=== PATIENT | male | born 1980 | race Caucasian/White ===

== ENCOUNTER 2017-06-08 01:13 | Emergency (ER) | payer OTHER ==
[2017-06-08 01:23] VITALS: BP 164/95
[2017-06-08] MEDS ORDERED: LORazepam 2 MG/ML Syringe IM ONE (01:34)
--- NOTE | 2017-06-08 01:38 | EDM.PDOCBH ---
ED HPI GENERAL MEDICAL PROBLEM - General Chief Complaint: Behavioral/Psych Stated Complaint: ANXIETY Time Seen by Provider: 06/08/17 01:35 Source of Information: Reports: Patient History Limitations: Reports: No Limitations - History of Present Illness INITIAL COMMENTS - FREE TEXT/NARRATIVE: h/o insomnia. took his usual Rx but still feel wound up. - Related Data Allergies Allergy/AdvReac Type Severity Reaction Status Date / Time No Known Allergies Allergy Verified 06/15/15 19:04 Home Meds: Home Meds ClonazePAM [KlonoPIN] 1 mg PO ASDIRECTED PRN 06/15/15 [History] Hydrochlorothiazide [Hydrochlorothiazide] 25 mg PO DAILY 06/15/15 [History] Lisinopril [Lisinopril] 40 mg PO DAILY 06/15/15 [History] Pantoprazole [ProTONIX] 40 mg PO DAILY 06/15/15 [History] Metoprolol Succinate 50 mg PO DAILY 06/08/17 [History] metFORMIN HCl [Metformin HCl] 1 tab PO BID 06/08/17 [History] Past Medical History HEENT History: Reports: Impaired Vision Cardiovascular History: Reports: Hypertension Respiratory History: Reports: None Gastrointestinal History: Reports: GERD Genitourinary History: Reports: None Musculoskeletal History: Reports: Back Pain, Chronic Neurological History: Reports: None Psychiatric History: Reports: Anxiety Endocrine/Metabolic History: Reports: Diabetes, Type II Hematologic History: Reports: None Immunologic History: Reports: None Oncologic (Cancer) History: Reports: None Dermatologic History: Reports: None Social & Family History - Tobacco Use Smoking Status *Q: Never Smoker - Recreational Drug Use Recreational Drug Use: No ED ROS GENERAL - Review of Systems Review Of Systems: ROS reveals no pertinent complaints other than HPI. ED EXAM, BEHAVIORAL HEALTH - Physical Exam Exam: See Below Exam Limited By: No Limitations General Appearance: Alert, WD/WN, No Apparent Distress, Anxious, Other (little dsitraught) Eye Exam: Bilateral Eye: PERRL (pupils ER @ 4mm) Ears: Hearing Grossly Normal Throat/Mouth: Normal Voice, No Airway Compromise Head: Atraumatic Neck: Non-Tender, Full Range of Motion Respiratory/Chest: No Respiratory Distress Cardiovascular: Regular Rate, Rhythm GI/Abdominal: Soft, Non-Tender Neurological: Alert, Normal Mood/Affect, Normal Cognition, Normal Gait, No Motor /Sensory Deficits, Oriented x 3 Psychiatric: Flat Affect Skin Exam: Warm, Dry, Normal color COURSE, BEHAVIORAL HEALTH COMP - Course Vital Signs: Last Vital Signs Temp 36.1 C 06/08/17 01:16 Pulse 86 06/08/17 01:23 Resp 18 06/08/17 01:23 BP 164/95 H 06/08/17 01:23 Pulse Ox 100 06/08/17 01:23 Orders, Labs, Meds: Medications Discontinued Medications Generic Name Dose Route Start Last Admin Trade Name Tatiana PRN Reason Stop Dose Admin Lorazepam 2 mg 06/08/17 01:34 06/08/17 01:38 Ativan IM 06/08/17 01:35 2 mg ONETIME ONE Administration Departure - Departure Time of Disposition: 01:40 Disposition: Home, Self-Care 01 Condition: Good Clinical Impression: Insomnia Qualifiers: Insomnia type: unspecified Qualified Code(s): G47.00 - Insomnia, unspecified - Discharge Information Forms: ED Department Discharge Additional Instructions: 1) recheck as needed
== END 2017-06-08 01:43 | disposition home or self-care (01) ==
LOC: DL.ED 01:13
DX: G47.00 Insomnia, unspecified (principal); I10 Essential (primary) hypertension; K21.9 Gastro-esophageal reflux disease without esophagitis; E11.9 Type 2 diabetes mellitus without complications; Z79.899 Other long term (current) drug therapy
CPT/HCPCS: 96372; 99283; J2060

== ENCOUNTER 2017-07-21 23:49 | Emergency (ER) | payer OTHER ==
[2017-07-21] MEDS ORDERED: Sodium Chloride 0.9% 1,000 ML IV ONE (23:55)
[2017-07-22 00:02] VITALS: BP 157/93
--- NOTE | 2017-07-22 00:03 | EDM.PDOC ---
ED HPI GENERAL MEDICAL PROBLEM - General Chief Complaint: Headache Stated Complaint: NOT FEELING GOOD [id number] Time Seen by Provider: 07/21/17 23:54 Source of Information: Reports: Patient History Limitations: Reports: No Limitations - History of Present Illness INITIAL COMMENTS - FREE TEXT/NARRATIVE: 37 yo white male c/o headache going from back of neck over top of head and anxiety w/ muscle cramps since yesterday after work and has been hunting all day today. Denies SOB and Chest Pain. Pt. admits to taking Tylenol and Advil prior to coming to ER Onset Date: 07/20/17 Onset Time: 12:00 Duration: Day(s): Location: Reports: Head, Neck Quality: Reports: Ache Severity: Moderate Improves with: Reports: None Worsens with: Reports: None Associated Symptoms: Reports: Headaches - Related Data Allergies Allergy/AdvReac Type Severity Reaction Status Date / Time No Known Allergies Allergy Verified 07/22/17 00:02 Home Meds: Home Meds ClonazePAM [KlonoPIN] 1 mg PO ASDIRECTED PRN 06/15/15 [History] Hydrochlorothiazide [Hydrochlorothiazide] 25 mg PO DAILY 06/15/15 [History] Lisinopril [Lisinopril] 40 mg PO DAILY 06/15/15 [History] Pantoprazole [ProTONIX] 40 mg PO DAILY 06/15/15 [History] Metoprolol Succinate 50 mg PO DAILY 06/08/17 [History] metFORMIN HCl [Metformin HCl] 1 tab PO BID 06/08/17 [History] Past Medical History HEENT History: Reports: Impaired Vision Cardiovascular History: Reports: Hypertension Respiratory History: Reports: None Gastrointestinal History: Reports: GERD Genitourinary History: Reports: None Musculoskeletal History: Reports: Back Pain, Chronic Neurological History: Reports: None Psychiatric History: Reports: Anxiety Endocrine/Metabolic History: Reports: Diabetes, Type II Hematologic History: Reports: None Immunologic History: Reports: None Oncologic (Cancer) History: Reports: None Dermatologic History: Reports: None Social & Family History - Tobacco Use Smoking Status *Q: Never Smoker - Recreational Drug Use Recreational Drug Use: No ED ROS GENERAL - Review of Systems Review Of Systems: See Below Constitutional: Reports: No Symptoms HEENT: Reports: No Symptoms Respiratory: Reports: No Symptoms Cardiovascular: Reports: No Symptoms Endocrine: Reports: No Symptoms GI/Abdominal: Reports: No Symptoms : Reports: No Symptoms Musculoskeletal: Reports: No Symptoms Skin: Reports: No Symptoms Neurological: Reports: Headache Psychiatric: Reports: No Symptoms Hematologic/Lymphatic: Reports: No Symptoms Immunologic: Reports: No Symptoms - Physical Exam Exam: See Below Exam Limited By: No Limitations General Appearance: Alert, No Apparent Distress, Obese Eye Exam: Bilateral Eye: EOMI, PERRL Ears: Normal External Exam Nose: Normal Inspection Throat/Mouth: Normal Inspection, Normal Lips Head Exam: Atraumatic, Normocephalic Neck: Normal Inspection, Supple Respiratory/Chest: No Respiratory Distress, Lungs Clear Cardiovascular: Normal Peripheral Pulses, Regular Rate, Rhythm GI/Abdominal: Normal Bowel Sounds, Soft, Non-Tender Neuro Exam (Abbreviated): Alert, Oriented, CN II-XII Intact, Normal Cognition Back Exam: Normal Inspection Extremities: Normal Inspection, Normal Range of Motion Psychiatric: Normal Affect Skin Exam: Warm, Dry, Intact, Normal Color Course - Vital Signs Last Recorded V/S: Last Vital Signs Temp 36.1 C 07/21/17 23:54 Pulse 98 07/21/17 23:54 Resp 20 07/21/17 23:54 BP 157/93 H 07/21/17 23:54 Pulse Ox 99 07/21/17 23:54 - Orders/Labs/Meds Orders: Active Orders 24 hr Category Date Time Status Chest 2V [CR] Urgent Exams 07/22/17 00:30 Taken UA W/MICROSCOPIC [URIN] Stat Lab 07/22/17 01:05 Results Labs: Laboratory Tests 07/22/17 07/22/17 07/22/17 Range/Units 00:05 00:05 00:40 WBC 15.4 H (5.0-10.0) 10^3/uL RBC 4.85 (4.6-6.2) 10^6/uL Hgb 14.3 (14.0-18.0) g/dL Hct 43.3 (40.0-54.0) % MCV 89.3 (80-100) fL MCH 29.5 (27.0-34.0) pg MCHC 33.0 (33.0-35.0) g/dL Plt Count 330 (150-450) 10^3/uL Neut % (Auto) 53.7 (42.2-75.2) % Lymph % (Auto) 36.7 (20.5-50.1) % Johnson % (Auto) 7.0 (2-8) % Eos % (Auto) 2.3 (1.0-3.0) % Baso % (Auto) 0.3 (0.0-1.0) % Sodium 136 (135-145) mmol/L Potassium 3.5 L (3.6-5.0) mmol/L Chloride 97 L (101-111) mmol/L Carbon Dioxide 27.0 (21.0-31.0) mmol/L Anion Gap 15.5 BUN 26 H (7-18) mg/dL Creatinine 1.2 (0.6-1.3) mg/dL Est Cr Clr Drug Dosing 104.16 mL/min Estimated GFR (MDRD) > 60 BUN/Creatinine Ratio 21.66 Glucose 124 H (74-105) mg/dL Lactic Acid 1.6 (0.5-2.2) mmol/L Calcium 9.7 (8.4-10.2) mg/dl Magnesium 1.8 (1.8-2.5) mg/dL Total Bilirubin 1.3 H (0.2-1.0) mg/dL AST 23 (10-42) IU/L ALT 33 (10-60) IU/L Alkaline Phosphatase 51 (42-121) IU/L Total Protein 8.1 (6.7-8.2) g/dl Albumin 4.6 (3.2-5.5) g/dl Globulin 3.5 Albumin/Globulin Ratio 1.31 Urine Color (YELLOW) Urine Appearance (CLEAR) Urine pH (5.0-9.0) Ur Specific [place] (1.005-1.030) Urine Protein (NEGATIVE) Urine Glucose (UA) (NEGATIVE) Urine Ketones (NEGATIVE) Urine Occult Blood (NEGATIVE) Urine Nitrite (NEGATIVE) Urine Bilirubin (NEGATIVE) Urine Urobilinogen (0.2-1.0) mg/dL Ur Leukocyte Esterase (NEGATIVE) Urine Opiates Screen (NEGATIVE) Ur Oxycodone Screen (NEGATIVE) Urine Methadone Screen (NEGATIVE) Ur Barbiturates Screen (NEGATIVE) U Tricyclic Antidepress (NEGATIVE) Ur Phencyclidine Scrn (NEGATIVE) Ur Amphetamine Screen (NEGATIVE) U Methamphetamines Scrn (NEGATIVE) Urine MDMA Screen (NEGATIVE) U Benzodiazepines Scrn (NEGATIVE) Urine Cocaine Screen (NEGATIVE) U Marijuana (THC) Screen (NEGATIVE) 07/22/17 07/22/17 Range/Units 01:05 [employer] 01:05 [place] [employer] WBC (5.0-10.0) 10^3/uL RBC (4.6-6.2) 10^6/uL Hgb (14.0-18.0) g/dL Hct (40.0-54.0) % MCV (80-100) fL MCH (27.0-34.0) pg MCHC (33.0-35.0) g/dL Plt Count (150-450) 10^3/uL Neut % (Auto) (42.2-75.2) % Lymph % (Auto) (20.5-50.1) % Johnson % (Auto) (2-8) % Eos % (Auto) (1.0-3.0) % Baso % (Auto) (0.0-1.0) % Sodium (135-145) mmol/L Potassium (3.6-5.0) mmol/L Chloride (101-111) mmol/L Carbon Dioxide (21.0-31.0) mmol/L Anion Gap BUN (7-18) mg/dL Creatinine (0.6-1.3) mg/dL Est Cr Clr Drug Dosing mL/min Estimated GFR (MDRD) BUN/Creatinine Ratio Glucose (74-105) mg/dL Lactic Acid (0.5-2.2) mmol/L Calcium (8.4-10.2) mg/dl Magnesium (1.8-2.5) mg/dL Total Bilirubin (0.2-1.0) mg/dL AST (10-42) IU/L ALT (10-60) IU/L Alkaline Phosphatase (42-121) IU/L Total Protein (6.7-8.2) g/dl Albumin (3.2-5.5) g/dl Globulin Albumin/Globulin Ratio Urine Color Yellow (YELLOW) Urine Appearance Clear (CLEAR) Urine pH 5.5 (5.0-9.0) Ur Specific [place] 1.025 (1.005-1.030) Urine Protein Negative (NEGATIVE) Urine Glucose (UA) Negative (NEGATIVE) Urine Ketones Negative (NEGATIVE) Urine Occult Blood Negative (NEGATIVE) Urine Nitrite Negative (NEGATIVE) Urine Bilirubin Negative (NEGATIVE) Urine Urobilinogen 0.2 (0.2-1.0) mg/dL Ur Leukocyte Esterase Negative (NEGATIVE) Urine Opiates Screen Negative (NEGATIVE) Ur Oxycodone Screen Negative (NEGATIVE) Urine Methadone Screen Negative (NEGATIVE) Ur Barbiturates Screen Negative (NEGATIVE) U Tricyclic Antidepress Negative (NEGATIVE) Ur Phencyclidine Scrn Negative (NEGATIVE) Ur Amphetamine Screen Negative (NEGATIVE) U Methamphetamines Scrn Negative (NEGATIVE) Urine MDMA Screen Negative (NEGATIVE) U Benzodiazepines Scrn Negative (NEGATIVE) Urine Cocaine Screen Negative (NEGATIVE) U Marijuana (THC) Screen Negative (NEGATIVE) Meds: Medications Discontinued Medications Generic Name Dose Route Start Last Admin Trade Name Freq PRN Reason Stop Dose Admin Sodium Chloride 1,000 mls @ 999 mls/hr 07/21/17 23:55 07/22/17 00:11 Normal Saline IV 07/22/17 00:55 999 mls/hr .BOLUS ONE Administration Potassium Chloride 20 meq 07/22/17 00:38 07/22/17 00:43 Klor-Con 10 PO 07/22/17 00:39 20 meq ONETIME ONE Administration Departure - Departure Time of Disposition: 01:25 Disposition: Home, Self-Care 01 Condition: Good Clinical Impression: Hypokalemia Head ache Qualifiers: Headache type: tension-type Headache chronicity pattern: acute headache Intractability: not intractable Qualified Code(s): G44.209 - Tension-type headache, unspecified, not intractable Leukocytosis, unspecified Qualifiers: Leukocytosis type: unspecified Qualified Code(s): D72.829 - Elevated white blood cell count, unspecified - Discharge Information Forms: ED Department Discharge Additional Instructions: Rest Increase intake of Fluids ( Water / Juice) F/U w/ PCP on Sunday - My Orders Last 24 Hours: My Active Orders 07/22/17 00:30 Chest 2V [CR] Urgent 07/22/17 01:05 UA W/MICROSCOPIC [URIN] Stat - Assessment/Plan Last 24 Hours: My Active Orders 07/22/17 00:30 Chest 2V [CR] Urgent 07/22/17 01:05 UA W/MICROSCOPIC [URIN] Stat
[2017-07-22 00:28] LABS: CHLORIDE,CL 97 mmol/L (101-111); SODIUM,NA 136 mmol/L (135-145)
[2017-07-22] MEDS ORDERED: Potassium Chloride 10 MEQ Tab.ER PO ONE (00:38)
== END 2017-07-22 01:48 | disposition home or self-care (01) ==
LOC: DL.ED 23:49
DX: G44.209 Tension-type headache, unspecified, not intractable (principal); D72.829 Elevated white blood cell count, unspecified; E87.6 Hypokalemia; I10 Essential (primary) hypertension; K21.9 Gastro-esophageal reflux disease without esophagitis; E11.9 Type 2 diabetes mellitus without complications; Z79.899 Other long term (current) drug therapy; Z79.84 Long term (current) use of oral hypoglycemic drugs
CPT/HCPCS: 36415; 71020; 80053; 80305; 81001; 83605; 83735; 85025; 96360; 99284; A9270; J7030

== ENCOUNTER 2019-10-13 05:22 | Emergency (ER) | payer OTHER ==
--- NOTE | 2019-10-13 05:41 | EDM.PDOCBH ---
ED HPI GENERAL MEDICAL PROBLEM - General Chief Complaint: Behavioral/Psych Stated Complaint: ANXIETY Time Seen by Provider: 10/13/19 05:41 Source of Information: Reports: Patient, RN, RN Notes Reviewed History Limitations: Reports: No Limitations - History of Present Illness INITIAL COMMENTS - FREE TEXT/NARRATIVE: patient presents to ER with complaint of anxiety. Patient states he has had trouble going to sleep, and is very shaky and jittery, cannot shot himself down. Patient states he does have some nasal congestion, stuffiness in the nose and unable to breathe through the nose. Patient states he thinks was a pre- existing anxiety. Patient states he ran out of his clonazepam. He states generally that helps him with the anxiety. Patient denies any other problems, fever, chills, shortness of breath, nausea/vomiting/diarrhea. Patient states he thinks he was having some musculoskeletal chest pain as it was painful when moving his arms. This has since resolved. Onset: Today, Sudden - Related Data Allergies Allergy/AdvReac Type Severity Reaction Status Date / Time No Known Allergies Allergy Verified 10/13/19 05:37 Home Meds: Home Meds ClonazePAM [KlonoPIN] 1 mg PO ASDIRECTED PRN 06/15/15 [History] Hydrochlorothiazide 25 mg PO DAILY 06/15/15 [History] Lisinopril 40 mg PO DAILY 06/15/15 [History] Pantoprazole [ProTONIX] 40 mg PO DAILY 06/15/15 [History] metFORMIN HCl [Metformin HCl] 1 tab PO BID 06/08/17 [History] Past Medical History HEENT History: Reports: Impaired Vision Cardiovascular History: Reports: Hypertension Respiratory History: Reports: None Gastrointestinal History: Reports: GERD Genitourinary History: Reports: None Musculoskeletal History: Reports: Back Pain, Chronic Neurological History: Reports: None Psychiatric History: Reports: Anxiety Endocrine/Metabolic History: Reports: Diabetes, Type II Hematologic History: Reports: None Immunologic History: Reports: None Oncologic (Cancer) History: Reports: None Dermatologic History: Reports: None Social & Family History - Caffeine Use Caffeine Use: Reports: Coffee, Soda, Tea ED ROS GENERAL - Review of Systems Review Of Systems: Comprehensive ROS is negative, except as noted in HPI. ED EXAM, BEHAVIORAL HEALTH - Physical Exam Exam: See Below Exam Limited By: No Limitations General Appearance: Alert, WD/WN, No Apparent Distress Eye Exam: Bilateral Eye: EOMI, Normal Inspection Ears: Normal External Exam, Hearing Grossly Normal Nose: Normal Inspection, Other (nasal congestion) Throat/Mouth: Normal Inspection, Normal Voice, No Airway Compromise Head: Atraumatic, Normocephalic Neck: Normal Inspection, Supple, Non-Tender, Full Range of Motion Respiratory/Chest: No Respiratory Distress, Lungs Clear, Normal Breath Sounds, No Accessory Muscle Use, Chest Non-Tender Cardiovascular: Normal Peripheral Pulses, Regular Rate, Rhythm, No Edema, No Gallop, No JVD, No Murmur, No Rub GI/Abdominal: Normal Bowel Sounds, Soft, Non-Tender, No Organomegaly, No Distention, No Abnormal Bruit, No Mass (Male) Exam: Deferred Rectal (Males) Exam: Deferred Back Exam: Normal Inspection, Full Range of Motion, NT Extremities: Normal Inspection, Normal Range of Motion, Non-Tender, Normal Capillary Refill, No Pedal Edema Neurological: Alert, Normal Mood/Affect, CN II-XII Intact, Normal Cognition, Normal Gait, Normal Reflexes, No Motor/Sensory Deficits, Oriented x 3 Psychiatric: Alert, Normal Cognition, Normal Mood, Oriented, Restless, Other ( anxious) Skin Exam: Warm, Dry, Intact, Normal color, No rash COURSE, BEHAVIORAL HEALTH COMP - Course Vital Signs: Last Vital Signs Temp 96.1 F 10/13/19 05:30 Pulse 107 H 10/13/19 05:30 Resp 18 10/13/19 05:30 BP 135/85 10/13/19 06:03 Pulse Ox 100 10/13/19 05:30 Orders, Labs, Meds: Medications Discontinued Medications Generic Name Dose Route Start Last Admin Trade Name Elderq PRN Reason Stop Dose Admin Clonazepam 0.5 mg 10/13/19 05:47 10/13/19 05:56 Klonopin PO 10/13/19 05:48 0.5 mg ONETIME ONE Administration Discharge vs Psych Eval/Treatment:: 10/13/19 06:09 patient states feeling improvement from the oral medication. Departure - Departure Time of Disposition: 06:09 Disposition: Home, Self-Care 01 Condition: Fair Clinical Impression: Anxiety, Nasal sinus congestion - Discharge Information *PRESCRIPTION DRUG MONITORING PROGRAM REVIEWED*: No *COPY OF PRESCRIPTION DRUG MONITORING REPORT IN PATIENT AL: No Instructions: Generalized Anxiety Disorder, Adult, Panic Attack, [id number], Living With Anxiety Forms: ED Department Discharge Additional Instructions: Rx: Clonazepam 0.5 mg Follow-up with your primary care facility if no improvement May use Flonase or [id number] decongestant for sinus congestion Sepsis Event Note - Focused Exam Vital Signs: Vital Signs Temp Pulse Resp BP Pulse Ox 10/13/19 06:03 135/85 10/13/19 05:30 96.1 F 107 H 18 116/85 100 Date Exam was Performed: 10/13/19 Time Exam was Performed: 06:18
[2019-10-13 05:47] VITALS: PULSE 107
[2019-10-13] MEDS ORDERED: ClonazePAM 0.5 MG Tab PO ONE (05:47)
[2019-10-13 06:04] VITALS: BP 135/85
== END 2019-10-13 06:24 | disposition home or self-care (01) ==
LOC: DL.ED 05:22
DX: F41.9 Anxiety disorder, unspecified (principal); R09.81 Nasal congestion; K21.9 Gastro-esophageal reflux disease without esophagitis; I10 Essential (primary) hypertension; E11.9 Type 2 diabetes mellitus without complications; Z79.84 Long term (current) use of oral hypoglycemic drugs; Z79.899 Other long term (current) drug therapy
CPT/HCPCS: 99283; A9270

== ENCOUNTER 2021-06-27 08:43 | Emergency (ER) | payer OTHER ==
--- NOTE | 2021-06-27 08:44 | EDM.PDOC ---
ED HPI GENERAL MEDICAL PROBLEM - General Chief Complaint: Back Pain or Injury Stated Complaint: BACK MARIAM [id number] Time Seen by Provider: 06/27/21 08:44 Source of Information: Reports: Patient, Old Records, RN, RN Notes Reviewed History Limitations: Reports: No Limitations - History of Present Illness INITIAL COMMENTS - FREE TEXT/NARRATIVE: Pt presents to ER by POV with c/o flare up of acute left low back pain and spasm two days ago without any specific injury or causative activity. Pt states the pain radiates through the left buttock in to the left anterior thigh, and t ingles down the left lower leg to the foot/toes. He rates the pain 10/10. Laying on his left side to find a position of comfort alleviates the pain slightly. Movement of the back and hips aggravates the pain. He denies saddle area numbness, loss of bowel or bladder control, or motor weakness. Hx of chronic low back pain with lumbar surgery about 6 years ago. Has taken NSAIDs and Valium 10mg yesterday without relief. Onset: Gradual Onset Date: 06/26/21 Duration: Constant, Getting Worse Location: Reports: Back, Lower Extremity, Left Quality: Reports: Ache, Sharp, Other (Spasm) Severity: Severe Associated Symptoms: Reports: No Other Symptoms Left Back Pain Score (Numeric/FACES): 10 - Related Data Allergies Allergy/AdvReac Type Severity Reaction Status Date / Time No Known Allergies Allergy Verified 06/27/21 08:49 Home Meds: Home Meds ClonazePAM [KlonoPIN] 1 mg PO ASDIRECTED PRN 06/15/15 [History] Hydrochlorothiazide 25 mg PO DAILY 06/15/15 [History] Lisinopril 40 mg PO DAILY 06/15/15 [History] Pantoprazole [ProTONIX] 40 mg PO DAILY 06/15/15 [History] metFORMIN HCl [Metformin HCl] 1 tab PO BID 06/08/17 [History] Past Medical History HEENT History: Reports: Impaired Vision Cardiovascular History: Reports: Hypertension Respiratory History: Reports: None Other Respiratory History: Has a c-pap Gastrointestinal History: Reports: GERD Genitourinary History: Reports: None Musculoskeletal History: Reports: Back Pain, Chronic Neurological History: Reports: None Psychiatric History: Reports: Anxiety Endocrine/Metabolic History: Reports: Diabetes, Type II, Obesity/BMI 30+ Hematologic History: Reports: None Immunologic History: Reports: None Oncologic (Cancer) History: Reports: None Dermatologic History: Reports: None - Infectious Disease History Infectious Disease History: Reports: Chicken Pox - Past Surgical History GI Surgical History: Reports: Hernia, Abdominal Neurological Surgical History: Reports: Lumbar Spine Musculoskeletal Surgical History: Reports: Knee Replacement, Other (See Below) Other Musculoskeletal Surgeries/Procedures:: back surg. Social & Family History - Family History Family Medical History: No Pertinent Family History - Caffeine Use Caffeine Use: Reports: Coffee, Soda, Tea Other Caffeine Use: 1 cup /day - Living Situation & Occupation Living situation: Reports: Occupation: Other ([employer]) ED ROS GENERAL - Review of Systems Review Of Systems: Comprehensive ROS is negative, except as noted in HPI. ED EXAM,LOWER BACK PAIN/INJURY - Physical Exam Exam: See Below Exam Limited By: No Limitations General Appearance: Alert, Moderate Distress (Due to pain), Obese Throat/Mouth: Normal Voice, No Airway Compromise Head: Atraumatic, Normocephalic Neck: Normal Inspection, Non-Tender, Full Range of Motion Respiratory/Chest: No Respiratory Distress Cardiovascular: Normal Peripheral Pulses GI/Abdominal: Normal Bowel Sounds, Soft, Non-Tender, Other (Benign obese abdomen) (Male) Exam: Deferred Rectal (Males) Exam: Deferred Back Exam: Decreased Range of Motion (Due to lumbar pain), Muscle Spasm (Lumbar region). No: CVA Tenderness (L), CVA Tenderness (R), Paraspinal Tenderness, Vertebral Tenderness Extremities: Normal Inspection, Non-Tender, No Pedal Edema, Normal Capillary Refill Neurological: Alert, Normal Mood/Affect, Normal Dorsiflexion, Normal Plantar Flexion, No Motor/Sensory Deficits, Oriented x 3 Psychiatric: Normal Mood Skin Exam: Warm, Dry, Intact, Normal Color, No Rash Course - Vital Signs Last Recorded V/S: Last Vital Signs Temp 96.7 F L 06/27/21 08:52 Pulse 99 06/27/21 08:52 Resp 20 06/27/21 08:52 BP 108/61 06/27/21 08:52 Pulse Ox 99 06/27/21 08:52 - Orders/Labs/Meds Orders: Active Orders 24 hr Category Date Time Status Peripheral IV Care [RC] . DIRECTED Care 06/27/21 08:45 Active UA RFX HIEN AND CULT IF INDIC [URIN] Stat Lab 06/27/21 08:45 Ordered Sodium Chloride 0.9% [Saline Flush] Med 06/27/21 08:44 Active 10 ml FLUSH ASDIRECTED PRN Peripheral IV Insertion Adult [OM.PC] Stat Oth 06/27/21 08:44 Ordered Medication Orders Sodium Chloride (Sodium Chloride 0.9% 10 Ml Syringe) 10 ml FLUSH ASDIRECTED PRN PRN Reason: Keep Vein Open Last Admin: 06/27/21 10:00 Dose: 10 ml Documented by: Admin: 06/27/21 09:06 Dose: 10 ml Documented by: MAT Labs: Laboratory Tests 06/27/21 06/27/21 Range/Units 08:58 08:58 WBC 8.5 (5.0-10.0) 10^3/uL RBC 5.09 (4.6-6.2) 10^6/uL Hgb 14.4 (14.0-18.0) g/dL Hct 43.7 (40.0-54.0) % MCV 85.9 D (80-100) fL MCH 28.3 (27.0-34.0) pg MCHC 33.0 (33.0-35.0) g/dL Plt Count 318 (150-450) 10^3/uL Neut % (Auto) 65.7 (42.2-75.2) % Lymph % (Auto) 24.9 (20.5-50.1) % [place] % (Auto) 7.2 (2-8) % Eos % (Auto) 1.7 (1.0-3.0) % Baso % (Auto) 0.5 (0.0-1.0) % C-Reactive Protein < 0.2 (0.0-0.9) mg/dL Meds: Medications Generic Name Dose Route Start Last Admin Trade Name Freq PRN Reason Stop Dose Admin Sodium Chloride 10 ml 06/27/21 08:44 06/27/21 10:00 Sodium Chloride 0.9% 10 Ml Syringe FLUSH 10 ml ASDIRECTED PRN Administration Keep Vein Open Discontinued Medications Generic Name Dose Route Start Last Admin Trade Name Freq PRN Reason Stop Dose Admin Dexamethasone 12 mg 06/27/21 08:45 06/27/21 09:04 Dexamethasone 4 Mg/Ml Sdv IVPUSH 06/27/21 08:46 12 mg ONETIME ONE Administration Hydromorphone HCl 1 mg 06/27/21 08:46 06/27/21 09:05 Hydromorphone 1 Mg/Ml Syringe IVPUSH 06/27/21 08:47 1 mg ONETIME ONE Administration Hydromorphone HCl 2 mg 06/27/21 09:18 06/27/21 09:55 Hydromorphone 1 Mg/Ml Syringe IVPUSH 06/27/21 09:19 2 mg ONETIME ONE Administration Ondansetron HCl 4 mg 06/27/21 08:46 06/27/21 09:04 Ondansetron 4 Mg/2 Ml Sdv IV 06/27/21 08:47 4 mg ONETIME ONE Administration - Re-Assessments/Exams Free Text/Narrative Re-Assessment/Exam: 06/27/21 10:57 No signs of cauda equina syndrome or cord compromise. I see no indication for imaging at this time, as pt is unable to lay on his back for scan, and is too large for CT or MRI. He may need an MRI in the near future, and has a physician to f/u with for recheck. Departure - Departure Time of Disposition: 10:59 Disposition: Home, Self-Care 01 Condition: Fair Clinical Impression: Acute exacerbation of chronic low back pain, Acute left lumbar radiculopathy, Spasm of muscle of lower back - Discharge Information *PRESCRIPTION DRUG MONITORING PROGRAM REVIEWED*: No *COPY OF PRESCRIPTION DRUG MONITORING REPORT IN PATIENT AL: No Instructions: Lumbosacral Radiculopathy, Acute Back Pain, Adult Forms: ED Department Discharge Additional Instructions: Rx: Oxycodone APAP 10mg/325mg Rx: Decadron 4mg Rx: Cyclobenzaprine 10mg Follow up in clinic in 3 to 4 days for recheck, and consider MRI if not improving as expected. Sepsis Event Note (ED) - Focused Exam Vital Signs: Vital Signs Temp Pulse Resp BP Pulse Ox 06/27/21 08:52 96.7 F L 99 20 108/61 99 - My Orders Last 24 Hours: My Active Orders 06/27/21 08:44 Sodium Chloride 0.9% [Saline Flush] 10 ml FLUSH ASDIRECTED PRN Peripheral IV Insertion Adult [OM.PC] Stat 06/27/21 08:45 Peripheral IV Care [RC] . DIRECTED UA RFX HIEN AND CULT IF INDIC [URIN] Stat - Assessment/Plan Last 24 Hours: My Active Orders 06/27/21 08:44 Sodium Chloride 0.9% [Saline Flush] 10 ml FLUSH ASDIRECTED PRN Peripheral IV Insertion Adult [OM.PC] Stat 06/27/21 08:45 Peripheral IV Care [RC] . DIRECTED UA RFX HIEN AND CULT IF INDIC [URIN] Stat
[2021-06-27] MEDS ORDERED: Dexamethasone 4 MG/ML SDV IVPUSH ONE (08:45)
[2021-06-27] MEDS ORDERED: HYDROmorphone 1 MG/ML Syringe IVPUSH ONE ×2 (08:46→09:18)
[2021-06-27] MEDS ORDERED: Ondansetron 4 MG/2 ML SDV IV ONE (08:46)
[2021-06-27 08:54] VITALS: BP 108/61; PULSE 99
[2021-06-27] MEDS: Sodium Chloride 0.9% 10 ML Syringe FLUSH PRN ×2 (09:06→10:00)
== END 2021-06-27 11:10 | disposition home or self-care (01) ==
LOC: DL.ED 08:43
DX: M54.16 Radiculopathy, lumbar region (principal); M62.830 Muscle spasm of back; I10 Essential (primary) hypertension; K21.9 Gastro-esophageal reflux disease without esophagitis; E11.9 Type 2 diabetes mellitus without complications; E66.9 Obesity, unspecified; Z68.43 Body mass index [BMI] 50.0-59.9, adult; Z79.84 Long term (current) use of oral hypoglycemic drugs; Z79.899 Other long term (current) drug therapy
CPT/HCPCS: 36415; 85025; 86140; 96374; 96375; 96376; 99283; J1100; J1170; J2405

== ENCOUNTER 2024-09-20 09:48 | Emergency (ER) | payer OTHER ==
[2024-09-20 10:14] LABS: BASOPHILS PERCENT AUTO 0.5 % (0.0-1.0); EOSINOPHILS PERCENT AUTO 3.5 % (1.0-3.0); HEMATOCRIT 38.2 % (40.0-54.0); HEMOGLOBIN 12.5 g/dL (14.0-18.0); LYMPHOCYTES PERCENT AUTO 24.6 % (20.5-50.1); MEAN CORPUSCULAR HEMOGLOBIN 30.9 pg (27.0-34.0); MEAN CORPUSCULAR HGB CONC 32.7 g/dL (33.0-35.0); MEAN CORPUSCULAR VOLUME 94.6 fL (80-100); MONOCYTES PERCENT AUTO 7.1 % (2-8); NEUTROPHILS PERCENT AUTO 64.3 % (42.2-75.2); PLATELET COUNT,PLT 252 10^3/uL (150-450); RED BLOOD CELL COUNT 4.04 10^6/uL (4.6-6.2); WHITE BLOOD CELL COUNT,WBC 6.6 10^3/uL (5.0-10.0)
[2024-09-20] MEDS: fentaNYL 100 MCG/2 ML SDV IVPUSH ONE (10:20)
[2024-09-20] MEDS: Sodium Chloride 0.9% 10 ML Syringe FLUSH PRN (10:20)
[2024-09-20] MEDS: Ondansetron 4 MG/2 ML SDV IVPUSH ONE (10:20)
[2024-09-20 10:28] LABS: APPEARANCE,URINE CLEAR (CLEAR); BILIRUBIN,URINE NEGATIVE (NEGATIVE); COLOR,URINE YELLOW (YELLOW); GLUCOSE,URINE NEGATIVE (NEGATIVE); KETONES,URINE NEGATIVE (NEGATIVE); LEUKOCYTE ESTERASE,URINE NEGATIVE (NEGATIVE); NITRITE,URINE NEGATIVE (NEGATIVE); OCCULT BLOOD,URINE NEGATIVE (NEGATIVE); PROTEIN,URINE NEGATIVE (NEGATIVE)
[2024-09-20 10:32] LABS: A/G RATIO 1.2; ALANINE AMINOTRANSFERASE,ALT 59 U/L (16-63); ALBUMIN 3.7 g/dL (3.4-5.0); ALKALINE PHOSPHATASE 79 U/L (46-116); ANION GAP 10.5 mEq/L (7-13); ASPARTATE AMNIOTRANSFERASE,AST 24 U/L (15-37); BILIRUBIN TOTAL 1.1 mg/dL (0.2-1.0); BLOOD UREA NITROGEN,BUN 19 mg/dL (7-18); BUN/CREATININE RATIO 22.1 (No establ ref range); CALCIUM 8.6 mg/dL (8.5-10.1); CARBON DIOXIDE,CO2 31 mmol/L (21-32); CHLORIDE,CL 107 mmol/L (98-107); CREATININE 0.86 mg/dL (0.70-1.30); EST CRCL DRUG DOSING (CG) 128.28 mL/min; GLUCOSE RANDOM 92 mg/dL (70-99); LIPASE 25 U/L (16-77); MAGNESIUM 1.9 mg/dL (1.8-2.4); POTASSIUM,K 3.5 mmol/L (3.5-5.1); PROTEIN TOTAL,TP 6.9 g/dL (6.4-8.2); SODIUM,NA 145 mmol/L (136-145)
[2024-09-20 10:35] LABS: C-REACTIVE PROTEIN < 0.50 ng/dL (<=0.50); ESTIMATED GFR 108 mL/min (>=60)
[2024-09-20] MEDS ORDERED: Naloxone 2 MG/2 ML Syringe IVPUSH PRN (10:38)
[2024-09-20] MEDS: Morphine 2 MG/ML SYRINGE IVPUSH ONE ×2 (10:47→14:29)
[2024-09-20] MEDS: Ketorolac 30 MG/ML SDV IVPUSH ONE (10:47)
[2024-09-20] MEDS: Iopamidol 612 MG/ML 100 ML Bottle IVPUSH ONE (10:53)
[2024-09-20] MEDS: Morphine 2 MG/ML SYRINGE IVPUSH PRN (12:28)
[2024-09-20] MEDS ORDERED: Morphine 2 MG/ML SYRINGE IVPUSH PRN (12:49)
[2024-09-20] MEDS: Lactated Ringers 1,000 ML IV SCH (12:54)
[2024-09-20 13:01] VITALS: BP 151/92; PULSE 61
== END 2024-09-20 14:38 ==
LOC: DL.ED 09:48
DX: K81.9 Cholecystitis, unspecified (principal); I10 Essential (primary) hypertension; K21.9 Gastro-esophageal reflux disease without esophagitis; E11.9 Type 2 diabetes mellitus without complications; E66.9 Obesity, unspecified; Z68.30 Body mass index [BMI] 30.0-30.9, adult; Z96.659 Presence of unspecified artificial knee joint; Z79.899 Other long term (current) drug therapy
CPT/HCPCS: 36415; 74177; 80053; 81003; 83690; 83735; 85025; 86140; 96361; 96374; 96375; 96376; 99285; J1885; J2270; J2405; J3010; J7120; Q9967